=== PATIENT | female | born 1955 | race Two or more races ===

== ENCOUNTER → 2017-01-13 | Outpatient (CLI) | payer BC ==
[~2017-01-13] MED LIST: ACETAMINOPHEN; ADVIL200 M1 PO; AMLODIPINE BESYL5 MG PO; ANTIVERT PO; ASPIRIN EC81 M1 PO; ASPIRIN81 M1 PO; CALCIUM + D 6001 TA1 PO; CENTRUM SILVER PO; CIPRO PO; CLARITIN10 M2 PO; ESTRACE PO; HARD NAILS2500 MCG PO; LIPITOR40 MG PO; LISINOPRIL-HCTZ1 T19 PO; LOTENSIN20 MG PO; MULTIVITAMIN1 UDCAP PO; OMEPRAZOLE20 M1 PO; PERCOCET7.5 PO; PHENERGAN25 M1 PO; PREVPAC PA1 COMB.PKG PO; PRILOSEC20 M1 PO; PROVERA PO; ZOFRAN ODT4 MG/UDTAB PO; [UNRECOGNIZED DRUG - REMARK]
--- NOTE | ~2017-01-13 | MY11 ---
[facility] A Service of [facility] RADIOLOGY TEXT RESULTS PATIENT: GARETH MISHRA LOCATION: [facility] : 57 UNIT #: [id number] AGE: [address]: Spencer Matthews MD SEX: F ORDER DR: [id number] [address] [address] [id number] O MR#: [id number] Acc #: [id number] NAME: GARETH MISHRA : 1955 SEX: F STUDY DATE/TIME: 01/13/2017 9:44 UNIT: [facility] ROOM: STUDY DESCRIPTION: MY Mammogram Screening Dig Eugenio Attending Physician: Spencer Matthews M.D. Referring Physician: Spencer Matthews M.D. Ordering Physician: Spencer Matthews M.D. Primary Care Physician: Patrick Conner M.D. MEDICAL IMAGING REPORT This report is preliminary unless electronic signature is present. EXAM Digital screening mammogram 01/13/2017 HISTORY 61-year-old woman no risk elevation. Annual screen. COMPARISON Mammograms date to 12/06/2007 with most recent 01/11/2016. FINDINGS Digital imaging of each breast was completed utilizing a two-view examination of each breast in craniocaudal and mediolateral-oblique projections. Review and interpretation of digital mammograms include a second review in conjunction with FDA-approved CAD device. There is a normal parenchymal presentation bilaterally consistent with the patient's age. There are no breast masses imaged and no parenchymal asymmetry is visualized. There are no suspicious microcalcifications and I see no focal architectural disturbance. IMPRESSION Negative screening digital mammogram. One-year followup recommended. Patients over the age of 40 are entered into a reminder system with target due date for the next mammogram. A result letter will also be sent to the patient. BIRADS: 1 Negative Dictated by... Caio Terrell M.D. [facility] A Service [facility] RADIOLOGY TEXT RESULTS PATIENT: GARETH MISHRA LOCATION: [facility] : 57 UNIT #: [id number] AGE: [address]: Spencer Matthews MD SEX: F ORDER DR: THIS IS AN ELECTRONICALLY VERIFIED REPORT Caio Terrell M.D. at 01/13/2017 12:28 PM ANGELES/[email or web address] TD: 01/13/2017 11:11 JOB #: [id number] MEDICAL IMAGING REPORT Page 1 of 1
--- NOTE | ~2017-01-13 | US6 ---
[facility] A Service [facility] RADIOLOGY TEXT RESULTS PATIENT: GARETH MISHRA LOCATION: [facility] : 57 UNIT #: [id number] AGE: [address]: Spencer Matthews MD SEX: F ORDER DR: [id number] [address] [address] [id number] O MR#: [id number] Acc #: [id number] NAME: GARETH MISHRA : 1955 SEX: F STUDY DATE/TIME: 01/13/2017 10:03 UNIT: [facility] ROOM: STUDY DESCRIPTION: US Abdominal Limited Attending Physician: Spencer Matthews M.D. Referring Physician: Spencer Matthews M.D. Ordering Physician: Spencer Matthews M.D. Primary Care Physician: Patrick Conner M.D. MEDICAL IMAGING REPORT This report is preliminary unless electronic signature is present. EXAM Right upper quadrant abdominal ultrasound INDICATION Elevated liver enzyme levels PROCEDURE Martinez-scale and Doppler imaging right upper quadrant of the abdomen. COMPARISON 01/21/2016 FINDINGS Pancreas obscured by bowel gas and not well seen. The liver measures 15.3 cm. The liver shows increased echotexture compared with the right kidney. No liver mass seen on submitted images. Unremarkable gallbladder. Common duct measures 2.0 mm. Right kidney measures 11.4 cm. No hydronephrosis. IMPRESSION 1. Increased liver echotexture in keeping with steatosis. 2. Otherwise negative right upper quadrant ultrasound. Dictated by... Fermín Baum M.D. THIS IS AN ELECTRONICALLY VERIFIED REPORT Fermín Baum M.D. at 01/16/2017 9:45 AM OSKAR/doroteo TD: 01/13/2017 16:00 JOB #: [id number] [facility] A Service [facility] RADIOLOGY TEXT RESULTS PATIENT: GARETH MISHRA LOCATION: [facility] : 57 UNIT #: [id number] AGE: [address]: Spencer Matthews MD SEX: F ORDER DR: MEDICAL IMAGING REPORT Page 1 of 1
== END | disposition home or self-care (01) ==
LOC: SGUS 08:51
DX: Z12.31 Encounter for screening mammogram for malignant neoplasm of breast (principal); R79.89 Other specified abnormal findings of blood chemistry
CPT/HCPCS: 76705; G0202